=== PATIENT | male | born 1965 | race Caucasian/White ===

== ENCOUNTER 2017-05-13 06:38 | Day surgery (SDC) | payer BC ==
[2017-05-13] MEDS ORDERED: Lactated Ringers 1,000 ML IV SCH (06:45)
[2017-05-13] MEDS ORDERED: Sodium Chloride 0.9% 10 ML Syringe FLUSH PRN (06:45)
[2017-05-13] MEDS ORDERED: Propofol 200 MG/20 ML SDV IV ONE (08:00)
[2017-05-13] MEDS ORDERED: fentaNYL 100 MCG/2 ML SDV IV ONE (08:00)
[2017-05-13] MEDS ORDERED: Midazolam 1 MG/ML 2 ML SDV IV ONE (08:00)
--- NOTE | 2017-05-13 08:18 | PCM.OPNOTE ---
- General Post-Op/Procedure Note Date of Surgery/Procedure: 05/13/17 Operative Procedure(s): c scope Findings: normal exam Pre Op Diagnosis: screening Post-Op Diagnosis: normal study Anesthesia Technique: MAC Primary Surgeon: Edward Daley Anesthesia Provider: Louie Kauffman Pathology: none Complications: None Condition: Good Free Text/Narrative:: see dictation
--- NOTE | 2017-05-13 09:07 | OR ---
DATE OF OPERATION: 05/13/2017 SURGEON: Edward Daley MD PROCEDURE PERFORMED: Screening colonoscopy. PREOPERATIVE DIAGNOSIS: Need for colon cancer screening. POSTOPERATIVE DIAGNOSIS: Normal study. INDICATIONS FOR PROCEDURE: This is a 52-year-old white male who presents for screening colonoscopy. He was offered and accepted same. DESCRIPTION OF PROCEDURE: After an excellent IV sedation was administered, digital rectal exam was performed. No marked abnormality was noted. The flexible colonoscope was inserted and advanced to the cecum without difficulty. The prep was excellent. The following findings were noted. Ascending colon, unremarkable. Transverse colon, unremarkable. Descending colon, unremarkable. Sigmoid and rectum, unremarkable. Colon was deflated. Scope was removed. RECOMMENDATIONS: Repeat colonoscopy in 10 years. /[id number] /TEDL
== END 2017-05-13 09:25 | disposition home or self-care (01) ==
LOC: FB.SDS 06:38
PROVIDERS: ATTEND Surgery
DX: Z12.11 Encounter for screening for malignant neoplasm of colon (principal); E78.5 Hyperlipidemia, unspecified; Z79.899 Other long term (current) drug therapy; F17.210 Nicotine dependence, cigarettes, uncomplicated
CPT/HCPCS: 00812; 45378; J2250; J2704; J3010; J7120

== ENCOUNTER 2020-04-28 10:41 | Emergency (ER) | payer OTHER, BC ==
[2020-04-28] MEDS ORDERED: Ketorolac 60 MG/2 ML SDV IM ONE (11:03)
[2020-04-28] MEDS ORDERED: Diphtheria,Pertussis(Acell),Tetanus Vaccine 0.5 ML Syringe IM ONE (11:03)
--- NOTE | 2020-04-28 11:12 | EDM.PDOC ---
ED HPI GENERAL MEDICAL PROBLEM - General Stated Complaint: SMASHED/CUT RIGHT HAND Time Seen by Provider: 04/28/20 10:55 Source of Information: Reports: Patient History Limitations: Reports: No Limitations - History of Present Illness INITIAL COMMENTS - FREE TEXT/NARRATIVE: c/o fall at work at [employer], slipped, as he fell his R hand went between equipment and floor last Td unknown R handed - Related Data Allergies Allergy/AdvReac Type Severity Reaction Status Date / Time No Known Allergies Allergy Verified 04/28/20 11:17 Home Meds: Home Meds tadalafiL [Cialis] 5 mg PO ASDIRECTED PRN 05/10/17 [History] Acetaminophen/HYDROcodone [[place] 325-5 MG] 1 tab PO Q4H PRN #4 tab 04/28/20 [Rx] Amoxicillin/Clavulanate K [Augmentin 500-125 MG] 1 tab PO BID #14 tab 04/28/20 [Rx] Fenofibrate Nanocrystallized [Fenofibrate] 145 mg PO DAILY 04/28/20 [History] Losartan [Cozaar] 25 mg PO DAILY 04/28/20 [History] Rosuvastatin [Crestor] 10 mg PO DAILY 04/28/20 [History] metFORMIN [Glucophage XR] 500 mg PO BIDMEALS 04/28/20 [History] Past Medical History - Past Health History Medical/Surgical History: Denies Medical/Surgical History HEENT History: Reports: Impaired Vision Cardiovascular History: Reports: None Respiratory History: Reports: None Gastrointestinal History: Reports: None Other Genitourinary History: MEDICATES FOR ERECTILE DYSFUNCTION Musculoskeletal History: Reports: None Neurological History: Reports: None Psychiatric History: Reports: None Endocrine/Metabolic History: Reports: None Hematologic History: Reports: None Immunologic History: Reports: None Oncologic (Cancer) History: Reports: None Dermatologic History: Reports: None - Infectious Disease History Infectious Disease History: Reports: Chicken Pox - Past Surgical History Head Surgeries/Procedures: Reports: None HEENT Surgical History: Reports: Tonsillectomy Social & Family History - Family History GI: Reports: None - Caffeine Use Caffeine Use: Reports: Coffee, Energy Drinks, Soda, Tea Review of Systems - Review of Systems Review Of Systems: See Below Constitutional: Reports: No Symptoms Eyes: Reports: No Symptoms Ears: Reports: No Symptoms Nose: Reports: No Symptoms Mouth/Throat: Reports: No Symptoms Respiratory: Reports: No Symptoms Cardiovascular: Reports: No Symptoms GI/Abdominal: Reports: No Symptoms Genitourinary: Reports: No Symptoms Musculoskeletal: Reports: Hand Pain Skin: Reports: Wound Neurological: Reports: No Symptoms Psychiatric: Reports: No Symptoms ED EXAM, GENERAL - Physical Exam Exam: See Below Exam Limited By: No Limitations General Appearance: Alert, WD/WN, Mild Distress Head: Atraumatic Neck: Normal Inspection Respiratory/Chest: No Respiratory Distress Cardiovascular: Regular Rate, Rhythm Extremities: Other (R index finger with deep laceration through the tip) Neurological: Alert, Oriented, CN II-XII Intact, Normal Cognition, Normal Gait, No Motor/Sensory Deficits Psychiatric: Normal Affect, Normal Mood Skin Exam: Other (no active bleeding) Lymphatic: No Adenopathy Course - Vital Signs Last Recorded V/S: Last Vital Signs Temp 36.8 C 04/28/20 11:00 Pulse 80 04/28/20 11:00 Resp 18 04/28/20 11:00 BP 136/83 04/28/20 11:00 Pulse Ox 99 04/28/20 11:00 - Orders/Labs/Meds Orders: Active Orders 24 hr Category Date Time Status Vaccines to be Administered [RC] PER UNIT ROUTINE Care 04/28/20 11:05 Ordered Meds: Medications Discontinued Medications Generic Name Dose Route Start Last Admin Trade Name Vijaya PRN Reason Stop Dose Admin Diphtheria/Tetanus/Acell Pertussis 0.5 ml 04/28/20 11:03 04/28/20 11:58 Boostrix IM 04/28/20 11:04 0.5 ml .ONCE ONE Administration Ketorolac Tromethamine 60 mg 04/28/20 11:03 04/28/20 11:18 Toradol IM 04/28/20 11:04 60 mg ONETIME ONE Administration - Re-Assessments/Exams Free Text/Narrative Re-Assessment/Exam: 04/28/20 13:15 deep lac in sagittal plane, caught outer edge of nail, 95% of nail intact with pink nailbed, angles at the base and is just medial to tendon insertion without visible tendon or involvement of joint, extends more proximal on dorsal aspect (near joint) then ventral (down ~1/2 way) XR with single distal fragment part of flap, involves ~30% of pain, however base is intact 1% lido finger block x 2 with complete analgesia, wound scrubbed with gauze and NS, 2 small 2 mm black flecks removed from outer surface, no deeper FBs present throughout procedure all questions answered 3-0 Ethilon x 7 used with good apposition of edges, 3.0 cm in length should heal well over one year, m/s intact, nl flex/ext of DIP, sensation intact, doubt will have numbness Departure - Departure Time of Disposition: 13:19 Disposition: Home, Self-Care 01 Condition: Good Clinical Impression: Laceration of finger, Displaced fracture of phalanx of finger of right hand - Discharge Information *PRESCRIPTION DRUG MONITORING PROGRAM REVIEWED*: Not Applicable *COPY OF PRESCRIPTION DRUG MONITORING REPORT IN PATIENT SHALONDA: Not Applicable Prescriptions: Amoxicillin/Clavulanate K [Augmentin 500-125 MG] 1 tab PO BID #14 tab Acetaminophen/HYDROcodone [[place] 325-5 MG] 1 tab PO Q4H PRN #4 tab PRN Reason: Pain Instructions: VIS, Tetanus, Diphtheria, and Pertussis (Tdap) - [facility] (06/03/2019), Laceration Care, Adult, Finger Fracture, Adult Referrals: Hitesh Rosario MD [Primary Care Provider] - Forms: ED Department Discharge Additional Instructions: To decrease risk of infection, take amoxicillin/clavulanate 500/125 mg 1 tab 2 times a day for 7 days. For pain, take ibuprofen 200 mg 4 tabs 3 times a day for 2 days, longer if needed. For pain, take hydrocodone/acetaminophen 5/325 mg 1 tab every 4-6 hours as needed. No alcohol. Keep covered with a finger guard. Keep clean and dry and covered with a dressing. May change dressing in 2 days if needed. Do not put pressure on finger tip. May work. However, you will not be able to use your finger for work duties. See Dr Do in 7 days to remove sutures. Sepsis Event Note (ED) - Focused Exam Vital Signs: Vital Signs Temp Pulse Resp BP Pulse Ox 04/28/20 11:00 36.8 C 80 18 136/83 99 - My Orders Last 24 Hours: My Active Orders 04/28/20 11:05 Vaccines to be Administered [RC] PER UNIT ROUTINE - Assessment/Plan Last 24 Hours: My Active Orders 04/28/20 11:05 Vaccines to be Administered [RC] PER UNIT ROUTINE
--- NOTE | 2020-04-28 11:45 | CR ---
INDICATION: Fell at work, cut on metal. RIGHT SECOND FINGER: Three views of the right 2nd finger revealed a laceration through the ungual tuft with open fracture through the ungual tuft and volar and medial deviation of the soft tissues and ungual tuft fracture fragment with separation and overriding. No other acute bone or joint abnormality was identified. Degenerative changes are noted of mild degree at the 3rd metacarpophalangeal joint. MTDD
== END 2020-04-28 13:40 | disposition home or self-care (01) ==
LOC: FB.ED 10:41
DX: S62.630A Displaced fracture of distal phalanx of right index finger, initial encounter for closed fracture (principal); Z79.84 Long term (current) use of oral hypoglycemic drugs; Z79.899 Other long term (current) drug therapy; Z23 Encounter for immunization; W01.0XXA Fall on same level from slipping, tripping and stumbling without subsequent striking against object, initial encounter; Y99.0 Civilian activity done for income or pay
CPT/HCPCS: 12002; 73140-F6; 90471; 90715; 96372; 99283; 99283-25; J1885